=== PATIENT | female | born 1990 | race Caucasian/White ===

== ENCOUNTER 2021-07-09 10:10 | Outpatient (CLI) | payer BC, SELFPAY ==
--- NOTE | ~2021-07-09 | US_ITS ---
EXAMINATION: US pelvic complete DATE: 07/09/2021 11:16 INDICATION: Dysmenorrhea Comparison:No prior studies for comparison. TECHNIQUE: Multiple transabdominal sonographic images of the pelvis performed. FINDINGS: The uterus measures 7.2 x 3.5 x 5.3 cm. The endometrial complex measures 6 mm. The right ovary measures 3.8 x 3.5 x 3.7 cm and the left ovary measures 2.5 x 2 x 1.7 cm. There are small follicles in each ovary. Normal doppler signal in both ovaries. There is no free fluid in the pelvis. There are no abnormal masses seen on either side. IMPRESSION: 1. Unremarkable pelvic ultrasound. Reviewed, dictated and finalized at location B. [employer]
== END 2021-07-09 10:11 ==
LOC: MICIMG 10:11
PROVIDERS: Visit Provider Physician Assistant
DX: N94.6 Dysmenorrhea, unspecified (principal)
CPT/HCPCS: 76856

== ENCOUNTER 2024-11-05 06:28 | Emergency (ER) | payer BC, SELFPAY ==
--- NOTE | ~2024-11-05 | XR_ITS ---
XR knee LT 3V, XR tibia fibula LT 2V 11/05/2024 07:05 (accession [id number]), 11/05/2024 07:06 (accession [id number]) Indication: Status post fall. Left leg pain. Procedure: 3 views left knee and 2 views left tibia/fibula Comparison: No prior studies for comparison. Findings: No fracture, subluxation or dislocation. There is anatomic alignment. No focal soft tissue abnormality. No foreign bodies. No knee effusion. There are small degenerative calcaneal enthesophyte s. Impression: 1: No acute fracture. Reviewed, dictated and finalized at location A. Impression: 1: No acute fracture. Impression: 1: No acute fracture.
[2024-11-05 06:29] VITALS: BP 117/78; PULSE 86; RESP 18; TEMP 36.3; O2SAT 100
--- NOTE | 2024-11-05 06:45 | ED_ITS ---
HPI - Fall General Chief Complaint: Fall Stated Complaint: fall Time Seen by Provider: 11/05/24 07:33 Source: patient Mode of arrival: ambulatory Limitations: no limitations History of Present Illness HPI Narrative: patient is a 34-year-old female with significant past medical history that presents today for a fall. Patient was walking up stairs with a close basket and his last labs and fell for. She fell hurt her right foot her left knee her left tibial tuberosity. She says her pain is about a 7/10 when she is walking. She still has little bit of pain when she is sitting as well. complaint: fall Onset (ago): hour(s) Fall from: standing Fall witnessed: no Place fall occurred: home Loss of consciousness: none Prolonged down time: no Symptoms prior to fall: none Context: tripped/slipped Related Data Home Medications ?Medication ?Instructions ?Recorded ?Confirmed ?Last Taken ?Type semaglutide 1 mg/dose (4 mg/3 mL) 1 mg subcut WEEKLY 02/14/24 02/14/24 Unknown History subcutaneous pen injector (Ozempic) Allergies Allergy/AdvReac Type Severity Reaction Status Date / Time Penecillian Allergy Intermediate Hives Uncoded 02/14/24 11:32 [facility] Family History Family History Mother Irritable bowel syndrome Father Hypertension Grandparent No problems noted. Other Carcinoma of colon Grandparent Breast cancer Heart disease Grandparent Lung cancer Social History Social History Smoking status: Former smoker Additional smoking assessment comments: smoked 2-3 cigarettes per day when she smoked Alcohol intake: never Substance use: never Do You Feel Safe in your Home?: Yes Lack of Transportation: No Lack of Food: Never True Current Housing: I Have Housing Concerned About Future Housing: No Difficulty Paying Gas/Electric Bills: No Difficulty Paying for Meds: No Currently Unemployed: No Education: High School Diploma/GED Difficulty w/ Childcare or Family Care: No Living arrangements: with family Occupation/Education: occupation 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 [employer] Gender identity (if verbalized by the patient): Female Course Vital Signs Vital signs: Vital Signs Temperature 97.3 F L 05/27/25 06:29 Pulse Rate 86 11/05/24 06:29 Respiratory Rate 18 11/05/24 06:29 Blood Pressure 117/78 11/05/24 06:29 Pulse Oximetry 100 11/05/24 06:29 Oxygen Delivery Room Air 11/05/24 06:29 Temperature 98.0 F 11/05/24 08:00 Pulse Rate 80 11/05/24 08:00 Respiratory Rate 20 11/05/24 08:00 Blood Pressure 118/80 11/05/24 08:00 Pulse Oximetry 100 11/05/24 08:00 Oxygen Delivery Room Air 11/05/24 08:00 Discharge Plan Discharge Clinical Impression: Contusion of knee, left, Right foot sprain Patient Disposition: Home Condition: Stable Instructions: Contusion in Adults (ED) Additional Instructions: Return if symptoms are worsening , call your family physician for appointment, take Tylenol, ibuprofen as as needed for aches and pain, continue home medications. Keep right foot elevated, avoid bending left knee Patient Language: Romanian Prescriptions: No Action Ozempic 1 mg/dose (4 mg/3 mL) pen injector 1 mg subcut WEEKLY Follow-up/Referrals: Misbah Burch MD [Primary Care Provider] - Stand Alone Forms: Work/School Release IP
--- NOTE | 2024-11-05 07:01 | PC.NURSE ---
patient report to B[facility] Leggett for continuation of care on day shift.
--- NOTE | 2024-11-05 07:38 | ED_ITS ---
HPI - Fall General Chief Complaint: Fall Stated Complaint: fall Time Seen by Provider: 11/05/24 07:33 Source: patient Mode of arrival: ambulatory History of Present Illness HPI Narrative: patient tripped going up stairs head the front of the left knee against 1 of the steps, denies loss of consciousness, complaining of left knee and right foot pain, last night, no other injuries. Place fall occurred: home Context: tripped/slipped Related Data Home Medications ?Medication ?Instructions ?Recorded ?Confirmed ?Last Taken ?Type semaglutide 1 mg/dose (4 mg/3 mL) 1 mg subcut WEEKLY 02/14/24 02/14/24 Unknown History subcutaneous pen injector (Ozempic) Allergies Allergy/AdvReac Type Severity Reaction Status Date / Time Penecillian Allergy Intermediate Hives Uncoded 02/14/24 11:32 Review of Systems Review of Systems: All systems reviewed & are unremarkable except as noted in HPI and below PMFSH Family History Family History Mother Irritable bowel syndrome Father Hypertension Grandparent No problems noted. Other Carcinoma of colon Grandparent Breast cancer Heart disease Grandparent Lung cancer Social History Social History Smoking status: Former smoker Additional smoking assessment comments: smoked 2-3 cigarettes per day when she smoked Alcohol intake: never Substance use: never Do You Feel Safe in your Home?: Yes Lack of Transportation: No Lack of Food: Never True Current Housing: I Have Housing Concerned About Future Housing: No Difficulty Paying Gas/Electric Bills: No Difficulty Paying for Meds: No Currently Unemployed: No Education: High School Diploma/GED Difficulty w/ Childcare or Family Care: No Living arrangements: with family Occupation/Education: occupation Additional occupation/education comments: manager loan at [employer] Gender identity (if verbalized by the patient): Female Exam Narrative: General appearance: Well-developed, well-nourished Skin: Normal color Head: Normocephalic, nontraumatic Eyes: Clear conjunctiva ENT: Oropharynx normal, ears normal, nose normal Neck: Supple, nontender Chest and respiratory: Airway patent, no respiratory distress, no accessory muscle use Heart: Regular rate/rhythm Abdomen: Soft, nontender, no organomegaly, quiet bowel sounds Vascular: Normal peripheral pulses, normal capillary refill. Musculoskeletal: Left knee examination showing bruises distal to the knee anteriorly, no deformity, right foot showing slight abrasion dorsally, good range of motion Neurologic: Alert and oriented ?3, [employer] OPERATOR is normal as tested, no gross motor deficit Course Vital Signs Vital signs: Vital Signs Temperature 36.3 C L 11/05/24 06:29 Pulse Rate 86 11/05/24 06:29 Respiratory Rate 18 11/05/24 06:29 Blood Pressure 117/78 11/05/24 06:29 Pulse Oximetry 100 11/05/24 06:29 Oxygen Delivery Room Air 11/05/24 06:29 Temperature 36.3 C L 11/05/24 06:29 Pulse Rate 86 11/05/24 06:29 Respiratory Rate 18 11/05/24 06:29 Blood Pressure 117/78 11/05/24 06:29 Pulse Oximetry 100 11/05/24 06:29 Oxygen Delivery Room Air 11/05/24 06:29 MDM - Fall MDM Narrative Medical decision making narrative: x-ray of the left knee and left tibia and fibula and right foot showed no acute abnormalities Differential Diagnosis Differential diagnosis: Likely other ( contusion versus fracture) Imaging Data Radiologist's impression: Impressions Foot X-Ray 11/05/24 07:06 Impression: Unremarkable right foot radiographs. Knee X-Ray 11/05/24 07:06 Impression: 1: No acute fracture. Tibia/Fibula X-Ray 11/05/24 07:06 Impression: 1: No acute fracture. Critical Care Time Critical Care Time Critical Care Time: No Discharge Plan Discharge Clinical Impression: Contusion of knee, left, Right foot sprain Patient Disposition: Home Condition: Stable Instructions: Contusion in Adults (ED) Additional Instructions: Return if symptoms are worsening , call your family physician for appointment, take Tylenol, ibuprofen as as needed for aches and pain, continue home medications. Keep right foot elevated, avoid bending left knee Patient Language: Khmer Prescriptions: No Action Ozempic 1 mg/dose (4 mg/3 mL) pen injector 1 mg subcut WEEKLY Follow-up/Referrals: Misbah Burch MD [Primary Care Provider] - Stand Alone Forms: Work/School Release IP
[2024-11-05 08:00] VITALS: BP 118/80; PULSE 80; RESP 20; TEMP 36.7; O2SAT 100
== END 2024-11-05 08:00 | disposition home or self-care (01) ==
PROVIDERS: Emergency Provider Emergency Medicine; PCP Family Medicine
DX: S80.02XA Contusion of left knee, initial encounter (principal); S93.691A Other sprain of right foot, initial encounter; Z87.891 Personal history of nicotine dependence; W01.0XXA Fall on same level from slipping, tripping and stumbling without subsequent striking against object, initial encounter; Y92.009 Unspecified place in unspecified non-institutional (private) residence as the place of occurrence of the external cause
CPT/HCPCS: 73562; 73590; 73630; 99284